=== PATIENT | male | born 1940 | race Caucasian/White ===

== ENCOUNTER 2017-09-07 07:31 | Emergency (ER) | payer MEDICARE, BC ==
[2017-09-07] MEDS ORDERED: Adacel (T-DAP) 0.5 ML VIAL ONE (07:50)
[2017-09-07] MEDS ORDERED: Lidocaine 1% w/Epinephrine 1:100K 20 ML VIAL ONE (08:01)
[2017-09-07] MEDS ORDERED: Sodium Bicarbonate 2.5 MEQ/5 ML VIAL ONE (08:01)
[2017-09-07] MEDS ORDERED: Bacitracin Zinc 1 Packet ONE ×2 (08:13→09:23)
--- NOTE | 2017-09-07 10:44 | CT ---
CT BRAIN WITHOUT CONTRAST: Date: 09/07/17 HISTORY: Fall. COMPARISON: MRI brain from 2006. 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 There is also old encephalomalacia in the posterior right MCA territory. Extensive microvascular ischemic changes. There is small cid-white matter differentiation along the right occipital pole which is age-indeterminate. There is no acute hemorrhage. Mild atrophy. No hydrocephalus. No midline shift. The calvarium is intact. Mild mucosal thickening of the left maxillary sinus. The mastoids are clear. Calvarium is intact. IMPRESSION: 1. Extensive microvascular ischemic changes, as well as old infarctions. There is mild loss of cid- white differentiation of the right occipital pole which may reflect old infarction versus subacute in farction. If clinically warranted, MRI is recommended. 2. No acute hemorrhage. 3. Mild periorbital soft tissue swelling, as well as a small, focal punctate area of subcutaneous ga s. POS: [facility]
== END 2017-09-07 15:04 | disposition home or self-care (01) ==
LOC: SCSER 07:31
DX: S01.111A Laceration without foreign body of right eyelid and periocular area, initial encounter (principal); T14.8XXA Other injury of unspecified body region, initial encounter; E11.9 Type 2 diabetes mellitus without complications; I10 Essential (primary) hypertension; W18.09XA Striking against other object with subsequent fall, initial encounter
CPT/HCPCS: 12013; 70450; 90471; 90715; J2001

== ENCOUNTER 2017-09-12 07:38 | Emergency (ER) | payer MEDICARE, BC | END 2017-09-12 08:12 | disposition home or self-care (01) | LOC: SCSER 07:38 | DX: S01.111D Laceration without foreign body of right eyelid and periocular area, subsequent encounter (principal); E11.9 Type 2 diabetes mellitus without complications; I10 Essential (primary) hypertension ==

== ENCOUNTER 2017-09-27 20:28 | Emergency (ER) | payer MEDICARE, BC ==
[2017-09-27 20:55] LABS: Clarity Hazy (Clear); Specific Gravity, Urine 1.015 (1.005-1.030)
[2017-09-27 21:02] LABS: Bacteria/HPF 2+ HPF (None Seen); RBC/HPF GREATER THAN 50-TNTC HPF (0-3); Squamous Epithelial None Seen HPF (0-3); WBC/HPF 0-3 HPF (0-3)
[2017-09-27] MEDS ORDERED: Nitrofurantoin Macrocrystal 50 MG CAP ONE (22:17)
[2017-09-27] MEDS ORDERED: Phenazopyridine HCl 97.5 MG TABLET ONE ×2 (22:18→22:19)
== END 2017-09-27 22:31 | disposition home or self-care (01) ==
LOC: SCSER 20:28
DX: N30.90 Cystitis, unspecified without hematuria (principal); E11.9 Type 2 diabetes mellitus without complications; I10 Essential (primary) hypertension
CPT/HCPCS: 81001; 87077; 87086; 87186; 99283

== ENCOUNTER 2017-10-07 08:51 | Emergency (ER) | payer MEDICARE, BC ==
[2017-10-07 09:16] LABS: Bilirubin Negative (Negative); Blood, Urine Large (Negative); Clarity Cloudy (Clear); Glucose, Urine (Dipstick) Negative (Negative); Leukocyte Negative (Negative); Nitrite Negative (Negative); Protein, Urine (Dipstick) > or equal to 300 mg/dL (Neg-Trace); Specific Gravity, Urine 1.025 (1.005-1.030); Urobilinogen 0.2 mg/dL (0.2-1.0)
[2017-10-07 09:17] LABS: RBC/HPF GREATER THAN 50-TNTC HPF (0-3)
[2017-10-07 09:18] LABS: Squamous Epithelial 0-3 HPF (0-3)
[2017-10-07 09:19] LABS: Bacteria/HPF Rare-Few HPF (None Seen)
[2017-10-07] MEDS ORDERED: Cephalexin 500 MG CAP ONE (09:33)
== END 2017-10-07 09:35 | disposition home or self-care (01) ==
LOC: SCSER 08:51
DX: N30.01 Acute cystitis with hematuria (principal); E11.9 Type 2 diabetes mellitus without complications; I10 Essential (primary) hypertension
CPT/HCPCS: 81003; 81015; 99283